=== PATIENT | female | born 2000 | race Hispanic/Latino ===

== ENCOUNTER 2022-08-26 14:21 | Emergency (ER) | payer SELFPAY ==
[~2022-08-26] VITALS: Ht 160 cm; Wt 95.3 kg
[2022-08-26 14:30] VITALS: O2SAT 98
[2022-08-26] MEDS ORDERED: IBUPROFEN600 MG PO (15:18)
[2022-08-26] MEDS ORDERED: AMOXICILLIN500 MG PO (15:18)
== END 2022-08-26 18:30 | disposition home or self-care (01) ==
LOC: ER 15:10
DX: H66.93 Otitis media, unspecified, bilateral (principal); J02.9 Acute pharyngitis, unspecified; R50.9 Fever, unspecified; D64.9 Anemia, unspecified
CPT/HCPCS: 99282